=== PATIENT | male | born 1985 | race African-American/Black ===

== ENCOUNTER 2016-07-20 18:13 | Emergency (ER) | payer MEDICAID ==
[~2016-07-20] VITALS: Ht 185.4 cm; Wt 81.6 kg
[2016-07-20 18:21] VITALS: BP 136/85; PULSE 73; RESP 22; TEMP 98.3; O2SAT 100
[2016-07-20] MEDS ORDERED: METOCLOPRAMIDE HCL 10 MG/2 ML VIAL IVP ONE (18:45)
[2016-07-20] MEDS ORDERED: NACL 0.9% 1,000 ML IV ONE (18:45)
[2016-07-20 18:47] LABS: BASOPHILS % (AUTO) 0.5 % (0.0-2.0); EOSINOPHILS # (AUTO) 0.2 K/uL (0.0-0.4); HEMATOCRIT 43.6 % (36-54); HEMOGLOBIN 14.4 g/dL (14.0-18.0); LYMPHOCYTES # (AUTO) 1.3 K/uL (1.0-5.5); LYMPHOCYTES % (AUTO) 24.6 % (20.5-51.5); MEAN CORPUSCULAR HEMOGLOBIN 29 pg (27-31); MEAN CORPUSCULAR HGB CONC 33 % (32-36); MEAN CORPUSCULAR VOLUME 88 fL (79.0-98.0); MONOCYTES # (AUTO) 0.5 K/uL (0.0-1.0); MONOCYTES % (AUTO) 8.8 % (1.7-9.3); NEUTROPHILS # (AUTO) 3.4 K/uL (1.8-7.7); NEUTROPHILS % (AUTO) 62.1 % (40.0-70.0); PLATELET COUNT (AUTO) 258 K/uL (130-430); RED BLOOD CELL COUNT(AUTO) 4.95 MIL/uL (4.2-6.2); RED CELL DISTRIBUTION WIDTH 13.1 % (9.0-15.0); WHITE BLOOD COUNT (AUTO) 5.4 K/uL (4.8-10.8)
[2016-07-20 18:56] LABS: CALCIUM 9.3 mg/dL (8.4-11.0); CREATININE 1.21 mg/dL (0.55-1.30); POTASSIUM 3.9 mmol/L (3.5-5.1)
[2016-07-20 19:11] LABS: ALBUMIN 3.6 g/dL (3.4-4.8); TOTAL BILIRUBIN 0.3 mg/dL (0.0-1.0)
[2016-07-20] MEDS ORDERED: LORazepam 2 MG/ML VIAL IVP ONE (19:30)
[2016-07-20] MEDS ORDERED: LORazepam 2 MG/ML VIAL (FOR ER USE) ONE (19:46)
[2016-07-20 21:05] VITALS: BP 136/85; PULSE 73; RESP 22; TEMP 98.3; O2SAT 100
== END 2016-07-20 21:05 | disposition home or self-care (01) ==
LOC: SED 18:13
DX: G43.909 Migraine, unspecified, not intractable, without status migrainosus (principal); R55 Syncope and collapse
CPT/HCPCS: 36415; 70450; 80053; 84484; 85025; 93005; 96361; 96374; 96375; 99285; J2060; J2765; J7030